=== PATIENT | male | born 1970 | race Caucasian/White ===

== ENCOUNTER → 2025-07-26 06:46 | Outpatient (REF) | payer OTHER, SELFPAY | LOC: HWRAD 06:46 | PROVIDERS: ATTENDING PHYSICIAN Family Medicine | DX: R10.84 Generalized abdominal pain (principal) | CPT/HCPCS: 76700 ==

== ENCOUNTER → 2025-07-30 08:36 | Outpatient (REF) | payer OTHER, SELFPAY | LOC: HWRCS 08:36 | PROVIDERS: ATTENDING PHYSICIAN Internal Medicine Cardiovascular Disease; FAMILY PHYSICIAN Family Medicine | DX: R07.9 Chest pain, unspecified (principal) | CPT/HCPCS: 78452; 93017; A9500 ==

== ENCOUNTER → 2025-09-03 15:59 | Outpatient (REF) | payer OTHER, SELFPAY | LOC: RCS 15:59 | PROVIDERS: ATTENDING PHYSICIAN Internal Medicine Cardiovascular Disease; FAMILY PHYSICIAN Family Medicine | DX: R93.1 Abnormal findings on diagnostic imaging of heart and coronary circulation (principal) | CPT/HCPCS: 93306 ==